=== PATIENT | female | born 1965 | race Two or more races ===

== ENCOUNTER 2020-06-21 16:09 | Emergency (ER) | payer OTHER ==
[~2020-06-21] VITALS: Ht 157.5 cm; Wt 80.7 kg
[2020-06-21] MEDS ORDERED: SKELAXIN800 MG PO (20:09)
[2020-06-21] MEDS ORDERED: ACETAMINOPHEN500 M1 PO (20:09)
== END 2020-06-21 20:17 | disposition home or self-care (01) ==
LOC: ER 16:09
DX: M54.2 Cervicalgia (principal); R51.9 Headache, unspecified; M62.838 Other muscle spasm